=== PATIENT | female | born 1990 | race Asian ===

== ENCOUNTER 2024-05-25 09:00 | Outpatient (CLI) | payer BC | END 2024-05-25 09:01 | disposition home or self-care (01) | LOC: CSHULT 09:00 | PROVIDERS: ATTEND Advanced Practice Midwife | DX: N63.10 Unspecified lump in the right breast, unspecified quadrant (principal); R92.30 Dense breasts, unspecified ==

== ENCOUNTER 2024-12-20 18:12 | Inpatient (IN) | payer BC ==
[2024-12-20 19:17] VITALS: BMI 25.0
[2024-12-20] MEDS ORDERED: hydrALAZINE 20 MG/ML VIAL SLOW IVP PRN (19:38)
[2024-12-20] MEDS ORDERED: Ibuprofen 800 MG TAB PO PRN (19:38)
[2024-12-20] MEDS ORDERED: Ondansetron PF 4 MG/2 ML Vial IVP PRN (19:38)
[2024-12-20] MEDS ORDERED: Acetaminophen 500 MG TAB PO PRN (19:38)
[2024-12-20] MEDS ORDERED: Methylergonovine 0.2 MG/ML VIAL IM PRN (19:38)
[2024-12-20] MEDS ORDERED: Diphenoxylate HCl/Atropine Tablet PO PRN ×2 (19:38)
[2024-12-20] MEDS ORDERED: Carboprost 250 MCG/ML AMP IM PRN (19:38)
[2024-12-20] MEDS ORDERED: Tranexamic Acid 1,000 MG/10 ML VIAL IVP PRN (19:38)
[2024-12-20] MEDS ORDERED: Lidocaine 1% (PF) 30 ML VIAL SC PRN (19:38)
[2024-12-20] MEDS ORDERED: Oxytocin 30 units/NS 500 ML 500 ML IV SCH ×2 (19:45)
[2024-12-20 19:58] LABS: Hematocrit 36.2 % (34.9-44.5); Hemoglobin 12.5 g/dL (12.0-15.5); Mean Corpuscular Hemoglobin 32.1 pg (27.0-33.0); Mean Corpuscular Volume 93.1 fL (81.6-98.3); Platelet Count 169 10x3/uL (150-450); Red Blood Cell (RBC) Count 3.89 10x6/uL (3.90-5.03); White Blood Cell (WBC) Count 9.97 10x3/uL (3.5-10.5)
[2024-12-20 20:37] LABS: Syphilis Antibody Index 0.10 S/CO (<1.00 Non-Reactive)
[2024-12-20 20:38] LABS: Hep B Surf Ag - L&D Non-Reactive S/CO (NonReactive)
[2024-12-21] MEDS ORDERED: Acetaminophen 325 MG TAB PO PRN (03:47)
[2024-12-21] MEDS ORDERED: diphenhydrAMINE 50 MG/ML VIAL IVP PRN (03:47)
[2024-12-21] MEDS ORDERED: Ondansetron PF 4 MG/2 ML Vial IVP PRN (03:47)
[2024-12-21] MEDS ORDERED: Communication Order-Pharmacy FS SCH (04:00)
[2024-12-21] MEDS: fentaNYL 2 mcg/Ropivacaine 0.2% Epidural 100 ML CADD EPIDURAL SCH (04:17)
[2024-12-21] MEDS ORDERED: Bupivacaine 0.25% HCL 30 ML VIAL ONE (12:55)
[2024-12-21] MEDS ORDERED: Bupivacaine HCl 0.5%/Epinephrine 1:200,000/PF 30 ml Vial ONE (12:55)
[2024-12-21] MEDS ORDERED: Bisacodyl 10 MG SUPP PR PRN (15:55)
[2024-12-21] MEDS ORDERED: Methylergonovine 0.2 MG/ML VIAL IM PRN (15:55)
[2024-12-21] MEDS ORDERED: Milk Of Magnesia 30 ML UDCUP PO PRN (15:55)
[2024-12-21] MEDS ORDERED: Lanolin Ointment 7 GM TUBE TOP PRN (15:55)
[2024-12-21] MEDS: Ibuprofen 800 MG TAB PO SCH (16:25)
[2024-12-21] MEDS: Benzocaine-Menthol 82.5 ML CAN TOP PRN (16:26)
[2024-12-21] MEDS: Ferrous Sulfate 325 MG TAB PO SCH (18:48)
[2024-12-21] MEDS: Acetaminophen 500 MG TAB PO SCH (18:48)
[2024-12-21] MEDS: fentaNYL/Ropivacaine Epidural 100 ML ONE (21:05)
[2024-12-23 09:26] VITALS: BP 112/55; TEMP 98.2
== END 2024-12-23 12:05 | disposition home or self-care (01) | DRG 807 ==
LOC: CSHLD 18:12 → CSHPP 12-21 09:20
PROVIDERS: ADMIT Obstetrics & Gynecology; ATTEND Obstetrics & Gynecology
PROC: 10E0XZZ Delivery of Products of Conception, External Approach (ICD-10-PCS; principal; 2024-12-20)
PROC: 0KQM0ZZ Repair Perineum Muscle, Open Approach (ICD-10-PCS; 2024-12-20)
PROC: 3E0DXGC Introduction of Other Therapeutic Substance into Mouth and Pharynx, External Approach (ICD-10-PCS; 2024-12-20)
DX: O36.5930 Maternal care for other known or suspected poor fetal growth, third trimester, not applicable or unspecified (principal); Z37.0 Single live birth; O70.1 Second degree perineal laceration during delivery; O69.81X0 Labor and delivery complicated by cord around neck, without compression, not applicable or unspecified; O32.6XX0 Maternal care for compound presentation, not applicable or unspecified
CPT/HCPCS: 51702; 85027; 86780; 86850; 86900; 86901; 87340; J0665